=== PATIENT | male | born 1980 | race Caucasian/White ===

== ENCOUNTER 2016-08-12 17:49 | Emergency (ER) | payer OTHER ==
[~2016-08-12] VITALS: Ht 188 cm; Wt 86.2 kg
--- NOTE | 2016-08-12 18:07 | NUR ---
PT AWAITING FOR CXR.
--- NOTE | 2016-08-12 18:32 | NUR ---
PT REFUSED CXR. PT D/C'D HOME ACI/RX X3 GIVEN. PT AMBULATED W/O DIFF/TOOK ALL BELONGINGS,.
[2016-08-12 18:36] VITALS: BP 112/65
== END 2016-08-12 18:37 | disposition home or self-care (01) ==
LOC: ER 17:58
DX: J20.8 Acute bronchitis due to other specified organisms (principal)
CPT/HCPCS: 99283; A4663